=== PATIENT | female | born 2000 | race Caucasian/White ===

== ENCOUNTER 2022-10-11 12:45 | Inpatient (IN) | payer SELFPAY ==
[2022-10-11] MEDS ORDERED: Sodium Chloride 0.9% 2.5 ML Syringe FLUSH PRN (12:50)
[2022-10-11] MEDS ORDERED: Sodium Chloride 0.9% 10 ML Syringe FLUSH PRN (12:50)
[2022-10-11] MEDS ORDERED: Sodium Chloride 0.9% 1,000 ML IV STA ×3 (12:52→13:50)
[2022-10-11 13:12] LABS: BASE EXCESS VENOUS -25.3 (-2.0-3.0); PH,VENOUS 6.98 (7.31-7.41)
[2022-10-11 13:15] LABS: BASOPHILS ABSOLUTE AUTO 0.1 K/uL (0.0-0.1); BASOPHILS PERCENT AUTO 0.5 % (0.0-1.5); EOSINOPHILS ABSOLUTE AUTO 0.2 K/uL (0.0-0.7); EOSINOPHILS PERCENT AUTO 1.6 % (0.0-7.0); HEMATOCRIT 47.2 % (36.0-46.0); HEMOGLOBIN 15.5 g/dL (12.0-16.0); LYMPHOCYTES ABSOLUTE AUTO 3.6 K/uL (0.6-2.4); LYMPHOCYTES PERCENT AUTO 32.1 % (16.0-40.0); MEAN CORPUSCULAR HEMOGLOBIN 26.5 pg (27.0-32.0); MEAN CORPUSCULAR HGB CONC 32.8 g/dL (31.0-37.0); MEAN CORPUSCULAR VOLUME 80.8 fL (80.0-98.0); MONOCYTES ABSOLUTE AUTO 0.5 K/uL (0.0-0.8); MONOCYTES PERCENT AUTO 4.8 % (0.0-15.0); NEUTROPHILS ABSOLUTE AUTO 6.8 K/uL (1.4-5.7); NRBC ABSOLUTE 0 K/uL; PLATELET COUNT,PLT 330 K/uL (150-400); RED BLOOD CELL COUNT 5.84 M/uL (4.30-5.90); WHITE BLOOD CELL COUNT,WBC 11.08 K/uL (4.0-11.0)
[2022-10-11 13:32] LABS: ALBUMIN 4.2 g/dL (3.4-5.0); BILIRUBIN TOTAL 0.4 mg/dL (0.2-1.0); CALCIUM 8.7 mg/dL (8.5-10.1); CARBON DIOXIDE,CO2 4.6 mmol/L (21.0-32.0); CREATININE 1.1 mg/dL (0.6-1.0); EST CRCL DRUG DOSING (CG) 64.26 mL/min; PHOSPHORUS 4.3 mg/dL (2.6-4.7); POTASSIUM,K 4.1 mmol/L (3.5-5.1); PROTEIN TOTAL,TP 8.3 g/dL (6.4-8.2)
[2022-10-11] MEDS ORDERED: Insulin Regular in 0.9 % NACL 100 ML IV SCH (13:45)
[2022-10-11 15:17] LABS: APPEARANCE,URINE CLEAR; BILIRUBIN,URINE NEGATIVE (NEGATIVE); COLOR,URINE YELLOW; GLUCOSE,URINE >=1000 mg/dL (NEGATIVE); KETONES,URINE >=80 mg/dL (NEGATIVE); LEUKOCYTE ESTERASE,URINE NEGATIVE (NEGATIVE); NITRITE,URINE NEGATIVE (NEGATIVE); OCCULT BLOOD,URINE NEGATIVE (NEGATIVE); PROTEIN,URINE TRACE mg/dL (NEGATIVE); UROBILINOGEN,URINE 0.2 EU/dL (<2.0)
[2022-10-11 15:24] LABS: BACTERIA,URINE FEW (NEGATIVE); EPITHELIAL CELLS,URINE FEW (NONE-FEW); MUCUS,URINE LIGHT (NONE-MOD); RBC,URINE NONE SEEN (0-2/HPF); WBC,URINE 0-3 (0-5/HPF)
[2022-10-11] MEDS ORDERED: Ondansetron 4 MG/2 ML SDV IVPUSH PRN (15:31)
[2022-10-11] MEDS ORDERED: Albuterol 0.083% 2.5 MG/3 ML Neb Soln NEB PRN (15:31)
[2022-10-11] MEDS ORDERED: Sodium Chloride 0.9% 1,000 ML IV SCH (15:45)
[2022-10-11] MEDS: Enoxaparin 40 MG/0.4 ML Syringe SUBCUT SCH (15:57)
[2022-10-11 16:49] LABS: CREATININE 0.8 mg/dL (0.6-1.0); EST CRCL DRUG DOSING (CG) 92.79 mL/min; POTASSIUM,K 3.6 mmol/L (3.5-5.1)
[2022-10-11] MEDS ORDERED: SODIUM CHLORIDE 0.9% IV ONE (17:21)
[2022-10-11] MEDS ORDERED: POTASSIUM CHLORIDE IV ONE (17:21)
[2022-10-11] MEDS ORDERED: NS + KCl 20mEq/L 1,000 ML IV ONE (17:45)
[2022-10-11] MEDS: Dextrose 5%-0.9% NaCl with KCl 1,000 ML IV SCH ×2 (18:03→22:10)
[2022-10-11 20:23] LABS: CALCIUM 6.7 mg/dL (8.5-10.1); CARBON DIOXIDE,CO2 8.9 mmol/L (21.0-32.0); CREATININE 0.7 mg/dL (0.6-1.0); EST CRCL DRUG DOSING (CG) 106.05 mL/min; POTASSIUM,K 3.4 mmol/L (3.5-5.1)
[2022-10-11] MEDS: Potassium Chloride 100 ML IV SCH ×2 (21:31→23:34)
[2022-10-12] LABS: CALCIUM 7.1 mg/dL (8.5-10.1); CREATININE 0.7 mg/dL (0.6-1.0); EST CRCL DRUG DOSING (CG) 106.05 mL/min; POTASSIUM,K 3.6 mmol/L (3.5-5.1)
[2022-10-12] MEDS: Dextrose 5%-0.9% NaCl with KCl 1,000 ML IV SCH ×2 (02:10→06:12)
[2022-10-12 03:38] LABS: BASOPHILS PERCENT AUTO 0.5 % (0.0-1.5); EOSINOPHILS ABSOLUTE AUTO 0.2 K/uL (0.0-0.7); EOSINOPHILS PERCENT AUTO 3.4 % (0.0-7.0); HEMATOCRIT 36.3 % (36.0-46.0); HEMOGLOBIN 12.6 g/dL (12.0-16.0); LYMPHOCYTES ABSOLUTE AUTO 2.3 K/uL (0.6-2.4); LYMPHOCYTES PERCENT AUTO 41.6 % (16.0-40.0); MEAN CORPUSCULAR HEMOGLOBIN 26.8 pg (27.0-32.0); MEAN CORPUSCULAR HGB CONC 34.7 g/dL (31.0-37.0); MEAN CORPUSCULAR VOLUME 77.2 fL (80.0-98.0); MONOCYTES ABSOLUTE AUTO 0.4 K/uL (0.0-0.8); MONOCYTES PERCENT AUTO 6.9 % (0.0-15.0); NEUTROPHILS ABSOLUTE AUTO 2.6 K/uL (1.4-5.7); NEUTROPHILS PERCENT AUTO 47.6 % (48.0-80.0); NRBC ABSOLUTE 0 K/uL; PLATELET COUNT,PLT 197 K/uL (150-400); WHITE BLOOD CELL COUNT,WBC 5.53 K/uL (4.0-11.0)
[2022-10-12 03:55] LABS: CALCIUM 7.2 mg/dL (8.5-10.1); CARBON DIOXIDE,CO2 13.5 mmol/L (21.0-32.0); CREATININE 0.6 mg/dL (0.6-1.0); EST CRCL DRUG DOSING (CG) 123.72 mL/min; POTASSIUM,K 3.3 mmol/L (3.5-5.1)
[2022-10-12] MEDS: Potassium Chloride 100 ML IV SCH ×2 (04:43→06:37)
[2022-10-12 07:59] LABS: CALCIUM 7.1 mg/dL (8.5-10.1); CARBON DIOXIDE,CO2 13.8 mmol/L (21.0-32.0); CREATININE 0.5 mg/dL (0.6-1.0); EST CRCL DRUG DOSING (CG) 148.47 mL/min; POTASSIUM,K 3.8 mmol/L (3.5-5.1)
[2022-10-12] MEDS ORDERED: Insulin Regular in 0.9 % NACL 100 ML IV SCH (08:34)
[2022-10-12] MEDS ORDERED: Sodium Chloride 0.9% 10 ML Syringe FLUSH PRN (08:35)
[2022-10-12] MEDS ORDERED: Sodium Chloride 0.9% 2.5 ML Syringe FLUSH PRN (08:35)
[2022-10-12] MEDS: D5 1/2 NS w/ 20 mEq/L KCl 1,000 ML IV SCH ×5 (08:56→21:49)
[2022-10-12] MEDS: Pantoprazole 40 MG in Sodium Chloride 0.9% 10 ML IVPUSH SCH (08:56)
[2022-10-12 12:47] LABS: CALCIUM 7.3 mg/dL (8.5-10.1); CREATININE 0.5 mg/dL (0.6-1.0); EST CRCL DRUG DOSING (CG) 148.47 mL/min; POTASSIUM,K 3.2 mmol/L (3.5-5.1)
[2022-10-12] MEDS ORDERED: Potassium Chloride 20 MEQ Tab.ER PO ONE (12:53)
[2022-10-12] MEDS: Potassium Chloride 20 MEQ in Premix Bag 1 BAG IV SCH ×2 (13:10→15:08)
[2022-10-12] MEDS: Enoxaparin 40 MG/0.4 ML Syringe SUBCUT SCH (15:03)
[2022-10-12 16:10] LABS: CALCIUM 8.2 mg/dL (8.5-10.1); CREATININE 0.6 mg/dL (0.6-1.0); EST CRCL DRUG DOSING (CG) 123.72 mL/min; POTASSIUM,K 4.3 mmol/L (3.5-5.1)
[2022-10-12 16:19] LABS: HEMOGLOBIN A1C >14.0 %
[2022-10-12 20:15] LABS: CALCIUM 7.8 mg/dL (8.5-10.1); CARBON DIOXIDE,CO2 18.2 mmol/L (21.0-32.0); EST CRCL DRUG DOSING (CG) 74.23 mL/min; POTASSIUM,K 3.8 mmol/L (3.5-5.1)
[2022-10-12] MEDS ORDERED: NS + KCl 20mEq/L 1,000 ML IV SCH (20:45)
[2022-10-12] MEDS ORDERED: Sodium Chloride 0.45% with KCl 1,000 ML IV SCH (21:00)
[2022-10-13 00:06] LABS: CALCIUM 7.9 mg/dL (8.5-10.1); CREATININE 0.7 mg/dL (0.6-1.0); EST CRCL DRUG DOSING (CG) 106.05 mL/min; POTASSIUM,K 3.8 mmol/L (3.5-5.1)
[2022-10-13] MEDS: D5 1/2 NS w/ 20 mEq/L KCl 1,000 ML IV SCH ×2 (00:06→08:03)
[2022-10-13 03:45] LABS: BASOPHILS PERCENT AUTO 0.5 % (0.0-1.5); EOSINOPHILS ABSOLUTE AUTO 0.1 K/uL (0.0-0.7); EOSINOPHILS PERCENT AUTO 2.5 % (0.0-7.0); HEMATOCRIT 36.4 % (36.0-46.0); HEMOGLOBIN 12.6 g/dL (12.0-16.0); LYMPHOCYTES ABSOLUTE AUTO 2.3 K/uL (0.6-2.4); LYMPHOCYTES PERCENT AUTO 51.1 % (16.0-40.0); MEAN CORPUSCULAR HEMOGLOBIN 26.5 pg (27.0-32.0); MEAN CORPUSCULAR HGB CONC 34.6 g/dL (31.0-37.0); MEAN CORPUSCULAR VOLUME 76.6 fL (80.0-98.0); MONOCYTES ABSOLUTE AUTO 0.3 K/uL (0.0-0.8); MONOCYTES PERCENT AUTO 7.7 % (0.0-15.0); NEUTROPHILS ABSOLUTE AUTO 1.7 K/uL (1.4-5.7); NEUTROPHILS PERCENT AUTO 38.2 % (48.0-80.0); NRBC ABSOLUTE 0 K/uL; PLATELET COUNT,PLT 178 K/uL (150-400); RED BLOOD CELL COUNT 4.75 M/uL (4.30-5.90); WHITE BLOOD CELL COUNT,WBC 4.44 K/uL (4.0-11.0)
[2022-10-13 04:14] LABS: CALCIUM 7.8 mg/dL (8.5-10.1); CARBON DIOXIDE,CO2 18.8 mmol/L (21.0-32.0); CREATININE 0.6 mg/dL (0.6-1.0); EST CRCL DRUG DOSING (CG) 123.72 mL/min; MAGNESIUM 1.7 mg/dL (1.8-2.4); PHOSPHORUS 2.5 mg/dL (2.6-4.7); POTASSIUM,K 3.6 mmol/L (3.5-5.1)
[2022-10-13] MEDS ORDERED: Potassium Phosphates 3 mMole/ML 15 ML SDV IV STA (04:47)
[2022-10-13] MEDS ORDERED: Magnesium Sulfate/Water 2 GM in Premix Bag 1 BAG IV ONE (04:47)
[2022-10-13] MEDS ORDERED: Potassium Phosphates 15 MMOLE in Sodium Chloride 0.9% 250 ML IV ONE (05:30)
[2022-10-13 07:52] LABS: CALCIUM 7.6 mg/dL (8.5-10.1); CARBON DIOXIDE,CO2 20.3 mmol/L (21.0-32.0); CREATININE 0.6 mg/dL (0.6-1.0); EST CRCL DRUG DOSING (CG) 121.09 mL/min; POTASSIUM,K 3.6 mmol/L (3.5-5.1)
[2022-10-13] MEDS: Pantoprazole 40 MG in Sodium Chloride 0.9% 10 ML IVPUSH SCH (08:03)
[2022-10-13] MEDS ORDERED: 50% Dextrose in Water 50 ML Syringe IVPUSH PRN ×2 (08:51→08:56)
[2022-10-13] MEDS ORDERED: Insulin Glargine,Hum.Rec.Anlog 100 UNIT/ML 3 ML Pen SUBCUT ONE (08:51)
[2022-10-13] MEDS ORDERED: Glucagon,Human Recombinant 1 MG Vial IM PRN ×2 (08:51→08:56)
[2022-10-13] MEDS ORDERED: Insulin Isophane NPH, Human 100 Units/ML 10 ML Vial SUBCUT SCH ×2 (09:00→18:00)
[2022-10-13] MEDS ORDERED: Insulin Aspart 100 Units/ML 3 ML Pen SUBCUT SCH ×2 (11:30)
[2022-10-13 11:35] LABS: CALCIUM 7.5 mg/dL (8.5-10.1); CARBON DIOXIDE,CO2 19.4 mmol/L (21.0-32.0); CREATININE 0.6 mg/dL (0.6-1.0); EST CRCL DRUG DOSING (CG) 121.09 mL/min; POTASSIUM,K 3.9 mmol/L (3.5-5.1)
[2022-10-13] MEDS ORDERED: Insulin Aspart 100 Units/ML 3 ML Pen SUBCUT ONE (13:40)
[2022-10-13] MEDS: Enoxaparin 40 MG/0.4 ML Syringe SUBCUT SCH (15:03)
[2022-10-13 16:51] LABS: CALCIUM 7.7 mg/dL (8.5-10.1); CARBON DIOXIDE,CO2 20.2 mmol/L (21.0-32.0); CREATININE 0.5 mg/dL (0.6-1.0); EST CRCL DRUG DOSING (CG) 145.3 mL/min; POTASSIUM,K 4.1 mmol/L (3.5-5.1)
[2022-10-13] MEDS: Insulin Aspart 100 Units/ML 3 ML Pen SUBCUT SCH ×2 (16:53→16:54)
[2022-10-13] MEDS ORDERED: Insulin Glargine,Hum.Rec.Anlog 100 UNIT/ML 3 ML Pen SUBCUT SCH (21:00)
[2022-10-14 07:15] LABS: BASOPHILS PERCENT AUTO 0.5 % (0.0-1.5); EOSINOPHILS ABSOLUTE AUTO 0.1 K/uL (0.0-0.7); EOSINOPHILS PERCENT AUTO 2.8 % (0.0-7.0); HEMATOCRIT 34.5 % (36.0-46.0); HEMOGLOBIN 11.7 g/dL (12.0-16.0); LYMPHOCYTES ABSOLUTE AUTO 2.5 K/uL (0.6-2.4); LYMPHOCYTES PERCENT AUTO 63.3 % (16.0-40.0); MEAN CORPUSCULAR HEMOGLOBIN 26.4 pg (27.0-32.0); MEAN CORPUSCULAR HGB CONC 33.9 g/dL (31.0-37.0); MEAN CORPUSCULAR VOLUME 77.7 fL (80.0-98.0); MONOCYTES ABSOLUTE AUTO 0.4 K/uL (0.0-0.8); NEUTROPHILS PERCENT AUTO 24.4 % (48.0-80.0); NRBC ABSOLUTE 0 K/uL; PLATELET COUNT,PLT 162 K/uL (150-400); RED BLOOD CELL COUNT 4.44 M/uL (4.30-5.90)
[2022-10-14 07:44] LABS: CALCIUM 7.7 mg/dL (8.5-10.1); CARBON DIOXIDE,CO2 22.3 mmol/L (21.0-32.0); CREATININE 0.5 mg/dL (0.6-1.0); EST CRCL DRUG DOSING (CG) 145.3 mL/min; MAGNESIUM 2.2 mg/dL (1.8-2.4); PHOSPHORUS 3.8 mg/dL (2.6-4.7); POTASSIUM,K 3.4 mmol/L (3.5-5.1)
[2022-10-14] MEDS: Insulin Aspart 100 Units/ML 3 ML Pen SUBCUT SCH ×4 (07:52→12:02)
[2022-10-14] MEDS ORDERED: Potassium Chloride 20 MEQ Tab.ER PO ONE ×2 (07:56→10:45)
[2022-10-14] MEDS ORDERED: Insulin Glargine,Hum.Rec.Anlog 100 UNIT/ML 3 ML Pen SUBCUT SCH (09:00)
[2022-10-14] MEDS: Pantoprazole 40 MG in Sodium Chloride 0.9% 10 ML IVPUSH SCH (10:50)
== END 2022-10-14 14:45 | disposition home or self-care (01) | DRG 638 ==
LOC: MW.ED 12:45 → MW.ICU 14:21 → MW.MS 10-13 18:10
PROVIDERS: ADMIT Hospitalist; ATTEND Hospitalist
DX: E10.10 Type 1 diabetes mellitus with ketoacidosis without coma (principal); R65.10 Systemic inflammatory response syndrome (SIRS) of non-infectious origin without acute organ dysfunction; Z96.22 Myringotomy tube(s) status; J45.20 Mild intermittent asthma, uncomplicated; Z91.040 Latex allergy status; Z91.09 Other allergy status, other than to drugs and biological substances; Z98.890 Other specified postprocedural states; Z79.4 Long term (current) use of insulin
CPT/HCPCS: 36415; 80048; 80053; 81001; 81025; 82009; 82803; 82947; 83036; 83735; 84100; 85025; 93005; 93010; 96360; 99284-25; 99285; A9270-GY; C9113; J1650; J1815; J1815-GY; J3475; J3480; J3490; J7030; J7050